=== PATIENT | female | born 1975 | race Two or more races ===

== ENCOUNTER 2021-04-02 08:15 | Inpatient (IN) | payer OTHER ==
[~2021-04-02] VITALS: Ht 160 cm; Wt 69.9 kg
[2021-04-02] MEDS ORDERED: AGRYLIN0.5 M1 (10:26)
== END 2021-04-09 19:12 | disposition home or self-care (01) | DRG 330 ==
LOC: SURH 04-06 07:00 → O/R 04-06 09:48 → SURH 04-06 09:48
PROVIDERS: ADMIT Colon & Rectal Surgery; ATTEND Colon & Rectal Surgery
PROC: 0DTN4ZZ Resection of Sigmoid Colon, Percutaneous Endoscopic Approach (ICD-10-PCS; principal; 2021-04-06 07:00)
DX: K57.32 Diverticulitis of large intestine without perforation or abscess without bleeding (principal); D69.3 Immune thrombocytopenic purpura

== ENCOUNTER 2021-04-19 01:24 | Inpatient (IN) | payer OTHER ==
[~2021-04-19] VITALS: Ht 160 cm; Wt 115.2 kg
[~2021-04-19 01:24] MED LIST: AGRYLIN0.5 M1
[2021-04-21] MEDS ORDERED: ABATINEX680 MG (14:51)
[2021-04-21] MEDS ORDERED: OMEPRAZOLE20 MG (14:51)
[2021-04-21] MEDS ORDERED: CELECOXIB200 MG (14:51)
[2021-04-21] MEDS ORDERED: FAMOTIDINE40 MG (14:51)
== END 2021-04-22 20:10 | disposition home or self-care (01) | DRG 390 ==
LOC: ER 01:24 → SEC-K 16:17 → SURH 16:17
PROVIDERS: ADMIT Colon & Rectal Surgery; ATTEND Colon & Rectal Surgery
DX: K56.690 Other partial intestinal obstruction (principal); K57.30 Diverticulosis of large intestine without perforation or abscess without bleeding; D75.838 Other thrombocytosis; Z20.822 Contact with and (suspected) exposure to COVID-19